=== PATIENT | female | born 1940 | race Asian ===

== ENCOUNTER → 2016-04-15 | Day surgery (SDC) | payer MEDICARE, OTHER ==
[~2016-04-15] MED LIST: ACIDOPHILUS1 CAP PO; ALLERGY RELIE15.8 ML; ALLERGY RELIEF10 M1 PO; ALLOPURINOL300 MG PO; BENADRYL25 MG PO; CALAN PO; CIPRO PO; COLCRYS0.6 MG PO; COMPAZINE10 M1 PO; DAZIDOX10 MG PO; DESYREL50 M1 DOB; DESYREL50 M1 PO; HYDROCHLOROTHIA25 MG PO; K-DUR20 ME1 PO; LABETALOL HCL100 MG PO; LASIX20 MG PO; LEVOTHYROXINE25 MC1 PO; LOSARTAN POTASS50 MG PO; NASONEX17 GM; NEURONTIN600 MG; NORMODYNE PO; NORMODYNE100 MG PO; NORVASC10 MG PO; OMEPRAZOLE10 MG PO; PHENERGAN25 MG PO; PLAVIX PO; PRINCIPEN500 M1 PO; Q PAP; Q-DRYL25 M1 PO; SIMVASTATIN20 MG PO; VERAPAMIL ER180 MG PO; VERELAN180 MG PO; VOLTAREN100 GM TOP; ZYLOPRIM100 MG DOB
--- NOTE | ~2016-04-15 | OR ---
Unit #: [id number] #: [id number] Patient: KARISHMA NIEVES [id number] [address] [place], [place] [address] [id number] O MR#: [id number] NAME: KARISHMA NIEVES ROOM: Date of Procedure: 04/15/2016 Admission Date: 04/15/2016 Surgeon: Andrés Huitron D.P.M. : 1940 Attending Physician: Andrés Huitron D.P.M. Primary Care Physician: Espinoza Riech M.D. OPERATIVE REPORT SERVICE Podiatry. PREOPERATIVE DIAGNOSIS Retained hardware, left foot. POSTOPERATIVE DIAGNOSIS Retained hardware, left foot. PROCEDURE PERFORMED Removal of retained hardware, left foot. CHOREOGRAPHY DIRECTOR Dr. Sean Alfaro, PGY-2; student, Scott Martínez, MS-4. ANESTHESIA Local with MAC. HEMOSTASIS None. ESTIMATED BLOOD LOSS Less than 5 mL. MATERIALS USED None. SPECIMENS None. COMPLICATIONS None. INDICATIONS FOR PROCEDURE This is a 76-year-old female with a chief complaint of painful retained hardware to her left foot. The patient underwent a bunion corrective surgery approximately 3 months ago, fixated with a single 2.0 Isaías cannulated screw. The screw has subsequently backed out causing irritation and ulceration to her left dorsal first metatarsophalangeal joint. The patient is requesting surgical intervention for this problem at this time. Physical exam reveals pedal pulses intact bilaterally. Sensation to light touch intact bilaterally. There is a 3 mm ulceration Unit #: [id number] #: [id number] Patient: KARISHMA NIEVES to the patient's left dorsal distal metatarsal with exposed hardware, mild periwound erythema, mild edema, tenderness to palpation over the distal first metatarsal. Radiographic examination reveals cannulated screw to be backed out from the original position. There is bony fusion noted across the osteotomy site. Arthritic changes at the first MPJ of the left foot. The patient understands the procedure to be performed today as well as all potential risks and complications involved. No guarantees or assurances have been given or implied. Consent was obtained preoperatively. All questions were answered. Risks versus benefits discussed at length. DESCRIPTION OF PROCEDURE The patient was brought to the operating room, placed on the operating table in supine position. A surgical time-out was performed, in which the patient's name, medical record number, date of , surgical site, and procedure were all verified. The left foot was scrubbed, prepped and draped in usual sterile manner. Attention was directed to the dorsal distal first metatarsal shaft where approximately 1 cm incision was made overlying the palpable prominence from the hardware over the existing incision site. Incision was deepened down to the level of the retained screw and screw was immediately identified and was removed in total. The osteotomy site was stable. The foot was inspected under fluoroscopy. All hardware was removed and verified on fluoroscopy as well as stabilization of the osteotomy site. The incision was then irrigated using sterile normal saline. It was closed with a 4-0 nylon simple interrupted sutures. Sterile compressive dressings consisting of Xeroform, 4x4s, Jessica, and Elastoplast tape was applied to the left foot. Vascular status was intact to the left foot as noted by a prompt hyperemic response to all digits. The patient tolerated the procedure and anesthesia well, was transferred to the recovery room with vital signs stable and vascular status intact to the left foot. The patient will remain weightbearing as tolerated in a postop shoe, and will follow up in 1 week for evaluation of incision site. Dictated by... Lito Alfaro M.D. for Ángel Conde/wally TD: 04/16/2016 04:47 JOB #: [id number] OPERATIVE REPORT X X PROCEDURE OPERATIVE NOTE
[2016-04-15 12:29] LABS: HEMATOCRIT 35.1 % (35.0-45.0); HEMOGLOBIN 11.7 gm/dL (12.0-16.0); MEAN CELL VOLUME 90.1 FL (83-96); MEAN CORPUSCULAR HGB CONC 33.3 g/dL (30-36); MEAN PLATELET VOLUME 6.4 FL (6.5-11.5); RED BLOOD COUNT 3.89 X10e (3.90-5.30); RED CELL DISTRIBUTION WIDTH 15.3 % (11.0-15.5)
[2016-04-15 12:57] LABS: BUN/CREATININE RATIO 22.14; CALCIUM SERUM 9.5 mg/dL (8.4-10.2); CREATININE SERUM 1.4 mg/dL (0.6-1.4); POTASSIUM 4.6 mmol/L (3.5-5.1)
== END | disposition home or self-care (01) ==
LOC: CSUR 11:18
PROVIDERS: Podiatrist Foot & Ankle Surgery
DX: T84.84XA Pain due to internal orthopedic prosthetic devices, implants and grafts, initial encounter (principal); I10 Essential (primary) hypertension; E03.9 Hypothyroidism, unspecified; M10.9 Gout, unspecified; D64.9 Anemia, unspecified; Z86.73 Personal history of transient ischemic attack (TIA), and cerebral infarction without residual deficits; Z79.899 Other long term (current) drug therapy; Z98.890 Other specified postprocedural states
CPT/HCPCS: 80048; 85027; J0690; J2250; J3010